=== PATIENT | female | born 1995 | race African-American/Black ===

== ENCOUNTER 2020-01-23 20:02 | Emergency (ER) | payer OTHER ==
[~2020-01-23] VITALS: Ht 144.8 cm; Wt 54.2 kg
[2020-01-23] MEDS ORDERED: ACETAMINOPHEN TAB 650MG DOSE (2X325MG) PO ONE (20:30)
[2020-01-23] MEDS ORDERED: IBUPROFEN 800 MG TAB PO ONE (20:30)
[2020-01-23] MEDS ORDERED: IBUP80TA PO (21:17)
[2020-01-23 21:22] VITALS: BP 115/60
== END 2020-01-23 21:24 | disposition home or self-care (01) ==
LOC: M ED 20:02
DX: R51 Headache (principal)

== ENCOUNTER 2020-04-08 16:14 | Emergency (ER) | payer OTHER ==
[~2020-04-08] VITALS: Ht 149.9 cm; Wt 53.6 kg
[~2020-04-08 16:14] MED LIST: IBUP80TA PO
[2020-04-08] MEDS ORDERED: LIDOCAINE 2% MDV 20ML VIAL SC ONE (17:45)
[2020-04-08 18:06] VITALS: BP 138/91
== END 2020-04-08 18:09 | disposition home or self-care (01) ==
LOC: M ED 16:14
DX: S61.211A Laceration without foreign body of left index finger without damage to nail, initial encounter (principal); W26.0XXA Contact with knife, initial encounter; Y92.89 Other specified places as the place of occurrence of the external cause; Y93.G1 Activity, food preparation and clean up; Y99.1 Military activity; F41.9 Anxiety disorder, unspecified

== ENCOUNTER → 2020-04-15 | Emergency (ER) | payer OTHER ==
[2020-04-15 17:20] VITALS: BP 107/54
== END | disposition left against medical advice (07) ==
LOC: M ED 17:19
DX: Z48.02 Encounter for removal of sutures (principal); Z53.21 Procedure and treatment not carried out due to patient leaving prior to being seen by health care provider

== ENCOUNTER 2020-07-09 16:40 | Emergency (ER) | payer OTHER ==
[~2020-07-09] VITALS: Ht 149.9 cm; Wt 55.7 kg
[2020-07-09 16:40] VITALS: BP 136/73
[2020-07-09] MEDS ORDERED: NAPR500T6 PO (17:01)
== END 2020-07-09 17:12 | disposition home or self-care (01) ==
LOC: M ED 16:40
DX: M65.4 Radial styloid tenosynovitis [de Quervain] (principal)

== ENCOUNTER 2020-10-21 17:51 | Emergency (ER) | payer OTHER ==
[~2020-10-21] VITALS: Ht 149.9 cm; Wt 55.8 kg
[~2020-10-21 17:51] MED LIST changes: +NAPR500T6 PO
--- OUTSIDE RECORDS SUMMARY | 2020-10-21 18:05 | CCD ---
Author Author [facility] Organization [facility] Address Unknown Phone Unavailable Support Name Relationship Address Phone DANIELITO RANDOLPH Next Of Kin [address] [place] [address] [facility] Next Of Kin [address] [place] [address] Unavailable CARRIE RANDOLPH Next Of Kin [address] [place] [place] [address] Re-disclosure Warning The records that you are about to access may contain information from federally-assisted alcohol or drug abuse programs. If such information is present, then the following federally mandated warning applies: This information has been disclosed to you from records protected by federal confidentiality rules (42 CFR part 2). The federal rules prohibit you from making any further disclosure of this information unless further disclosure is expressly permitted by the written consent of the person to whom it pertains or as otherwise permitted by 42 CFR part 2. A general authorization for the release of medical or other information is NOT sufficient for this purpose. The Federal rules restrict any use of the information to criminally investigate or prosecute any alcohol or drug abuse patient.The records that you are about to access may contain highly sensitive health information, the redisclosure of which is protected by Article 27-F of the [facility] Public Health law. If you continue you may have access to information: Regarding HIV / AIDS; Provided by facilities licensed or operated by the [facility] Office of Mental Health; or Provided by the [facility] Office for People With Developmental Disabilities. If such information is present, then the following [facility] mandated warning applies: This information has been disclosed to you from confidential records which are protected by state law. State law prohibits you from making any further disclosure of this information without the specific written consent of the person to whom it pertains, or as otherwise permitted by law. Any unauthorized further disclosure in violation of state law may result in a fine or prison sentence or both. A general authorization for the release of medical or other information is NOT sufficient authorization for further disc losure. Insurance Providers Payer name Policy type / Coverage type Policy ID Covered libertarian ID Covered libertarian's relationship to mejía Policy Mejía Plan Information [facility] ACTIVE DUTY [id number]
[2020-10-21] MEDS ORDERED: EPINEPHrine INJ 1 MG/ML 1ML AMP IM STA (18:13)
[2020-10-21] MEDS ORDERED: FAMOTIDINE INJ 20MG/2ML VIAL (S0028 PER 1) IVP ONE (18:15)
[2020-10-21] MEDS ORDERED: methylPREDNISolone 125MG 2ML VIAL IV ONE (18:15)
[2020-10-21] MEDS ORDERED: diphenhydrAMINE 50MG/ML VIAL (J1200) IV ONE (18:15)
[2020-10-21 18:34] LABS: BASO % 0.1 % (0.0-1.0); EOS % 0.2 % (0.0-3.0); HEMATOCRIT 42.5 % (36.0-47.0); HEMOGLOBIN 13.8 g/dl (12.0-15.5); LYMPH % 10.2 % (24.0-44.0); MEAN CORPUSCULAR HEMOGLOBIN 30.5 pg (27.0-33.0); MEAN CORPUSCULAR HGB CONC 32.5 g/dl (32.0-36.5); MONO # 0.1 10^3/uL (0.0-0.8); MONO % 1.2 % (0.0-5.0); NEUTROPHILS # 8.5 10^3/uL (1.5-8.5); NEUTROPHILS % 87.9 % (36.0-66.0); PLATELET COUNT, AUTOMATED 292 10^3/uL (150-450); RED BLOOD COUNT 4.52 10^6/uL (4.00-5.40); WHITE BLOOD COUNT 9.6 10^3/uL (4.0-10.0)
[2020-10-21 19:04] LABS: ALBUMIN 4.1 GM/DL (3.2-5.2); ALT/SGPT 24 U/L (12-78); BILIRUBIN,DIRECT 0.1 MG/DL (0.0-0.2); BILIRUBIN,TOTAL 0.6 MG/DL (0.2-1.0); BLOOD UREA NITROGEN 14 MG/DL (7-18); CALCIUM LEVEL 9.3 MG/DL (8.5-10.1); CARBON DIOXIDE LEVEL 31 MEQ/L (21-32); CHLORIDE LEVEL 105 MEQ/L (98-107); COMPLEMENT C4 23 MG/DL (10-40); CREATININE FOR GFR 0.81 MG/DL (0.55-1.30); GLOMERULAR FILTRATION RATE > 60.0 (>60); GLUCOSE, FASTING 93 MG/DL (70-100); POTASSIUM SERUM 3.6 MEQ/L (3.5-5.1); SODIUM LEVEL 140 MEQ/L (136-145); TOTAL PROTEIN 7.6 GM/DL (6.4-8.2)
[2020-10-21 19:07] LABS: CK-MB VALUE MASS < 1.0 NG/ML (<3.6); CPK CREATINE PHOSPHOKINASE 132 U/L (26-192); MB/CK RELATIVE INDEX 0.76 (< OR =4); TROPONIN I < 0.02 NG/ML (< 0.10)
[2020-10-21 19:15] VITALS: BP 112/57
--- NOTE | 2020-10-21 19:25 | REP ---
INDICATION: DYSPNEA/COUGH. COMPARISON: None. TECHNIQUE: SINGLE PORTABLE AP VIEW OF THE CHEST WAS PERFORMED. FINDINGS: THERE IS NO ACUTE INFILTRATE OR PULMONARY EDEMA. LUNGS ARE CLEAR. HEART IS NOT SIGNIFICANTLY ENLARGED. MEDIASTINAL SILHOUETTE IS UNREMARKABLE. THE VISUALIZED OSSEOUS STRUCTURES ARE INTACT. IMPRESSION: NO ACUTE PULMONARY DISEASE. <Electronically signed by Mario Molina > 10/21/201920
--- OUTSIDE RECORDS SUMMARY | 2020-10-21 20:02 | CCD ---
Author Author [facility] Organization [facility] Address Unknown Phone Unavailable Support Name Relationship Address Phone DANIELITO RANDOLPH Next Of Kin [address] [place] [address] [facility] Next Of Kin [address] [place] [address] Unavailable CARRIE RANDOLPH Next Of Kin [address] [place] [address] Re-disclosure Warning The records that [...] is protected by Article 27-F of the [facility] Public Health law. If you continue you may have access to information: Regarding HIV / AIDS; Provided by facilities licensed or operated by the [facility] Office of Mental Health; or Provided by the [facility] Office for People With Developmental Disabilities. If such information is present, then the following [facility] mandated warning applies: This information has [...] law may result in a fine or senior care sentence or both. A general authorization for the release of medical or other information is NOT sufficient authorization for further disc losure. Insurance Providers Payer name Policy type / Coverage type Policy ID Covered alliance party ID Covered alliance party's relationship to mejía Policy Mejía Plan Information [facility] ACTIVE DUTY [id number]
--- NOTE | 2020-10-21 20:55 | ECGEPIP ---
[facility] - ED Test Date: 2020-10-21 Pat Name: TERRY YU Department: Room: - Gender: Female Audit Clerk: franky : 1995 Requested By: TORRES Sarmiento Order Number: [id number] Reading MD: Chaitanya Wlilis Measurements Intervals [place] Rate: 99 P: 63 IN: 172 QRS: 39 QRSD: 80 T: 0 QT: 342 QTc: 440 Interpretive Statements SINUS RHYTHM NONSPECIFIC T-WAVE ABNORMALITY NO PRIORS FOR COMPARISON Electronically Signed on 10-21-2020 20:55:01 EST by Chaitanya Willis
[2020-10-22] MEDS ORDERED: BENA25CA4 PO (20:45)
[2020-10-26 15:14] LABS: C1 ESTER INHIB. NON FUNCTIONAL 26 mg/dL (21-39); C1 ESTERASE INHIB. FUNCTIONAL 79 (.)
== END 2020-10-21 22:20 | disposition home or self-care (01) ==
LOC: M ED 17:51
DX: R22.0 Localized swelling, mass and lump, head (principal); E73.9 Lactose intolerance, unspecified
CPT/HCPCS: 71045; 80048; 80076; 82550; 82553; 84484; 85025; 86160; 86161; 93005; 93041; 94760; 96372; 96374; 96375; 99285; J0171; J1200; J2930

== ENCOUNTER 2020-10-22 19:38 | Emergency (ER) | payer OTHER ==
[~2020-10-22] VITALS: Ht 149.9 cm; Wt 55.8 kg
[2020-10-22 19:39] VITALS: BP 113/60
--- OUTSIDE RECORDS SUMMARY | 2020-10-22 19:43 | CCD ---
Author Author [facility] Organization [facility] Address Unknown Phone Unavailable Support Name Relationship Address Phone DANIELITO RANDOLPH Next Of Kin [address] [place] [address] [facility] Next Of Kin [address] [place] [address] Unavailable CARRIE RANDOLPH Next Of Kin [address] [place] [address] Re-disclosure Warning The records that [...] is protected by Article 27-F of the [facility] Public Health law. If you continue you may have access to information: Regarding HIV / AIDS; Provided by facilities licensed or operated by the [facility] Office of Mental Health; or Provided by the [facility] Office for People With Developmental Disabilities. If such information is present, then the following [facility] mandated warning applies: This information has been [...] law may result in a fine or long-term sentence or both. A general authorization for the release of medical or other information is NOT sufficient authorization for further disc losure. Insurance Providers Payer name Policy type / Coverage type Policy ID Covered constitution party ID Covered constitution party's relationship to mejía Policy Mejía Plan Information [facility] ACTIVE DUTY [id number]
[2020-10-22] MEDS ORDERED: BENA25CA4 PO (20:45)
--- OUTSIDE RECORDS SUMMARY | 2020-10-22 20:56 | CCD ---
Author Author [facility] Organization [facility] Address Unknown Phone Unavailable Support Name Relationship Address Phone DANIELITO RANDOLPH Next Of Kin [address] [place] [address] [facility] Next Of Kin [address] [place] [address] Unavailable CARRIE RANDOLPH Next Of Kin [address] [place] [address] Re-disclosure Warning The records that [...] by Article 27-F of the [facility] Public Health law. If you continue you may have access to information: Regarding HIV / AIDS; Provided by facilities licensed or operated by the [facility] Office of Mental Health; or Provided by the [facility] Office for People With Developmental Disabilities. If such information is present, then the following [facility] mandated warning applies: This information [...] law may result in a fine or assisted sentence or both. A general authorization for the release of medical or other information is NOT sufficient authorization for further disc losure. Insurance Providers Payer name Policy type / Coverage type Policy ID Covered democrat ID Covered democrat's relationship to mejía Policy Mejía Plan Information [facility] ACTIVE DUTY [id number]
== END 2020-10-22 21:00 | disposition home or self-care (01) ==
LOC: M ED 19:38
DX: Z76.0 Encounter for issue of repeat prescription (principal); R51.9 Headache, unspecified; E73.9 Lactose intolerance, unspecified

== ENCOUNTER 2020-12-17 12:41 | Emergency (ER) | payer OTHER ==
[~2020-12-17] VITALS: Ht 149.9 cm; Wt 55.6 kg
[~2020-12-17 12:41] MED LIST changes: +BENA25CA4 PO
[2020-12-17 13:37] LABS: HEMATOCRIT 42.6 % (36.0-47.0); HEMOGLOBIN 13.6 g/dl (12.0-15.5); MEAN CORPUSCULAR HEMOGLOBIN 30.4 pg (27.0-33.0); MEAN CORPUSCULAR HGB CONC 31.9 g/dl (32.0-36.5); MEAN CORPUSCULAR VOLUME 95.1 fl (80.0-96.0); PLATELET COUNT, AUTOMATED 266 10^3/uL (150-450); RED BLOOD COUNT 4.48 10^6/uL (4.00-5.40); WHITE BLOOD COUNT 6.8 10^3/uL (4.0-10.0)
[2020-12-17] MEDS ORDERED: KETOROLAC TROMETHAMINE 10 MG TAB PO ONE (14:25)
[2020-12-17] MEDS ORDERED: ROBA750T4 PO (14:39)
[2020-12-17 14:44] VITALS: BP 104/69
== END 2020-12-17 14:45 | disposition home or self-care (01) ==
LOC: M ED 12:41
DX: N39.3 Stress incontinence (female) (male) (principal); G89.29 Other chronic pain; M54.6 Pain in thoracic spine; M54.5 Low back pain; E73.9 Lactose intolerance, unspecified

== ENCOUNTER 2021-04-28 08:37 | Emergency (ER) | payer OTHER ==
[~2021-04-28] VITALS: Ht 149.9 cm; Wt 55.7 kg
[~2021-04-28 08:37] MED LIST changes: +ROBA750T4 PO
[2021-04-28] MEDS ORDERED: EPIN0.3I11 (08:45)
[2021-04-28 10:58] LABS: HEMATOCRIT 40.2 % (36.0-47.0); HEMOGLOBIN 13.1 g/dl (12.0-15.5); MEAN CORPUSCULAR HEMOGLOBIN 30.8 pg (27.0-33.0); MEAN CORPUSCULAR HGB CONC 32.6 g/dl (32.0-36.5); MEAN CORPUSCULAR VOLUME 94.4 fl (80.0-96.0); PLATELET COUNT, AUTOMATED 282 10^3/uL (150-450); RED BLOOD COUNT 4.26 10^6/uL (4.00-5.40); WHITE BLOOD COUNT 5.7 10^3/uL (4.0-10.0)
[2021-04-28 11:20] LABS: AMPHETAMINES LEVEL URINE NEGATIVE (NEGATIVE); BARBITURATES URINE NEGATIVE (NEGATIVE); BENZODIAZEPINES URINE NEGATIVE (NEGATIVE); CANNABINOIDS URINE NEGATIVE (NEGATIVE); COCAINE METABOLITE URINE NEGATIVE (NEGATIVE); METHADONE URINE NEGATIVE (NEGATIVE); OPIATES URINE NEGATIVE (NEGATIVE); PHENCYCLIDINE URINE NEGATIVE (NEGATIVE)
[2021-04-28 11:27] LABS: ACETAMINOPHEN LEVEL < 2.0 UG/ML (10.0-30.0); ALBUMIN 3.8 GM/DL (3.2-5.2); ALT/SGPT 19 U/L (12-78); BILIRUBIN,DIRECT 0.2 MG/DL (0.0-0.2); BILIRUBIN,TOTAL 0.5 MG/DL (0.2-1.0); BLOOD UREA NITROGEN 9 MG/DL (7-18); CALCIUM LEVEL 8.8 MG/DL (8.5-10.1); CARBON DIOXIDE LEVEL 29 MEQ/L (21-32); CHLORIDE LEVEL 109 MEQ/L (98-107); CREATININE FOR GFR 0.65 MG/DL (0.55-1.30); ETHYL ALCOHOL (ETHANOL) < 0.003 % (0.000-0.010); GLOMERULAR FILTRATION RATE > 60.0 (>60); GLUCOSE, FASTING 79 MG/DL (70-100); POTASSIUM SERUM 4.1 MEQ/L (3.5-5.1); SALICYLATE LEVEL < 1.7 MG/DL (5.0-30.0); SODIUM LEVEL 142 MEQ/L (136-145); TOTAL PROTEIN 7.3 GM/DL (6.4-8.2)
[2021-04-28 11:30] LABS: HCG, SERUM QUALITATIVE NEGATIVE (NEGATIVE)
[2021-04-28 12:49] VITALS: BP 115/74
== END 2021-04-28 13:48 | disposition home or self-care (01) ==
LOC: M ED 08:37
DX: F32.9 Major depressive disorder, single episode, unspecified (principal); E73.9 Lactose intolerance, unspecified

== ENCOUNTER 2021-05-23 09:44 | Emergency (ER) | payer OTHER ==
[~2021-05-23] VITALS: Ht 144.8 cm; Wt 55.0 kg
[~2021-05-23 09:44] MED LIST changes: +EPIN0.3I11
[2021-05-23] MEDS ORDERED: B-12100T2 PO (09:49)
--- NOTE | 2021-05-23 10:38 | REP ---
INDICATION: trauma COMPARISON: None. TECHNIQUE: AP, lateral, bilateral oblique views right hand. FINDINGS: The osseous structures and joint spaces are intact and normal. There is no evidence for acute fracture or dislocation. Surrounding soft tissues are unremarkable. No subcutaneous emphysema or radiodense foreign body. IMPRESSION: . No acute fracture or dislocation. <Electronically signed by Jose Raul Jenkins > 05/23/21 0867
[2021-05-23 11:33] VITALS: BP 134/82
== END 2021-05-23 11:35 | disposition home or self-care (01) ==
LOC: M ED 09:44
DX: S60.221A Contusion of right hand, initial encounter (principal); W23.1XXA Caught, crushed, jammed, or pinched between stationary objects, initial encounter; Y92.9 Unspecified place or not applicable; Y93.9 Activity, unspecified; Y99.9 Unspecified external cause status; F32.9 Major depressive disorder, single episode, unspecified; Z79.899 Other long term (current) drug therapy

== ENCOUNTER 2021-07-13 18:15 | Emergency (ER) | payer OTHER ==
[~2021-07-13] VITALS: Ht 149.9 cm; Wt 56.4 kg
[~2021-07-13 18:15] MED LIST changes: +B-12100T2 PO
[2021-07-13] MEDS ORDERED: GABA-1171 (18:44)
[2021-07-13 20:50] LABS: HEMATOCRIT 38.3 % (36.0-47.0); HEMOGLOBIN 12.5 g/dl (12.0-15.5); MEAN CORPUSCULAR HEMOGLOBIN 30.3 pg (27.0-33.0); MEAN CORPUSCULAR HGB CONC 32.6 g/dl (32.0-36.5); PLATELET COUNT, AUTOMATED 270 10^3/uL (150-450); RED BLOOD COUNT 4.12 10^6/uL (4.00-5.40); WHITE BLOOD COUNT 7.9 10^3/uL (4.0-10.0)
[2021-07-13 21:14] LABS: AMPHETAMINES LEVEL URINE NEGATIVE (NEGATIVE); BARBITURATES URINE NEGATIVE (NEGATIVE); BENZODIAZEPINES URINE NEGATIVE (NEGATIVE); CANNABINOIDS URINE NEGATIVE (NEGATIVE); COCAINE METABOLITE URINE NEGATIVE (NEGATIVE); METHADONE URINE NEGATIVE (NEGATIVE); OPIATES URINE NEGATIVE (NEGATIVE); PHENCYCLIDINE URINE NEGATIVE (NEGATIVE)
[2021-07-13 21:29] LABS: HCG, SERUM QUALITATIVE NEGATIVE (NEGATIVE)
[2021-07-13 21:32] LABS: ACETAMINOPHEN LEVEL < 2.0 UG/ML (10.0-30.0); ALBUMIN 3.8 GM/DL (3.2-5.2); ALT/SGPT 22 U/L (12-78); BILIRUBIN,DIRECT 0.2 MG/DL (0.0-0.2); BILIRUBIN,TOTAL 0.8 MG/DL (0.2-1.0); BLOOD UREA NITROGEN 10 MG/DL (7-18); CALCIUM LEVEL 8.6 MG/DL (8.5-10.1); CARBON DIOXIDE LEVEL 31 MEQ/L (21-32); CHLORIDE LEVEL 104 MEQ/L (98-107); CREATININE FOR GFR 0.86 MG/DL (0.55-1.30); ETHYL ALCOHOL (ETHANOL) < 0.003 % (0.000-0.010); GLOMERULAR FILTRATION RATE > 60.0 (>60); GLUCOSE, FASTING 78 MG/DL (70-100); SALICYLATE LEVEL < 1.7 MG/DL (5.0-30.0); SODIUM LEVEL 139 MEQ/L (136-145); TOTAL PROTEIN 7.5 GM/DL (6.4-8.2)
[2021-07-13 23:18] VITALS: BP 115/78
== END 2021-07-13 23:22 | disposition home or self-care (01) ==
LOC: M ED 18:15
DX: F32.9 Major depressive disorder, single episode, unspecified (principal); Z91.51 Personal history of suicidal behavior; E73.9 Lactose intolerance, unspecified; Z79.899 Other long term (current) drug therapy

== ENCOUNTER 2022-10-31 18:35 | Emergency (ER) | payer OTHER ==
[~2022-10-31] VITALS: Ht 149.9 cm; Wt 59.0 kg
[~2022-10-31 18:35] MED LIST changes: +GABA-1171
[2022-10-31] MEDS ORDERED: LOPE1CAP5 (18:46)
[2022-10-31] MEDS ORDERED: DIPH-319 (18:46)
[2022-10-31 20:02] LABS: HEMOGLOBIN 13.2 g/dl (12.0-15.5); MEAN CORPUSCULAR HEMOGLOBIN 30.2 pg (27.0-33.0); MEAN CORPUSCULAR VOLUME 91.5 fl (80.0-96.0); PLATELET COUNT, AUTOMATED 298 10^3/uL (150-450); RED BLOOD COUNT 4.37 10^6/uL (4.00-5.40); WHITE BLOOD COUNT 10.1 10^3/uL (4.0-10.0)
[2022-10-31 20:30] LABS: ETHYL ALCOHOL (ETHANOL) 0.003 % (0.000-0.010)
[2022-10-31 20:31] LABS: ACETAMINOPHEN LEVEL < 2.0 UG/ML (10.0-20.0); SALICYLATE LEVEL < 3.0 MG/DL (<30)
[2022-10-31 20:32] LABS: ALBUMIN 3.9 G/DL (3.2-5.2); ALKALINE PHOSPHATASE 63 U/L (46-116); ALT/SGPT 14 U/L (7.0-40); AST/SGOT 21 U/L (<34); BILIRUBIN,DIRECT < 0.1 MG/DL (<0.4); BILIRUBIN,TOTAL 0.3 MG/DL (0.3-1.2); BLOOD UREA NITROGEN 15 MG/DL (9-23); CARBON DIOXIDE LEVEL 26 MMOL/L (20-31); CHLORIDE LEVEL 103 MMOL/L (98-107); CREATININE FOR GFR 0.62 MG/DL (0.55-1.30); GLOMERULAR FILTRATION RATE > 60.0 (>60); GLUCOSE, FASTING 85 MG/DL (60-100); POTASSIUM SERUM 3.8 MMOL/L (3.5-5.1); SODIUM LEVEL 137 MMOL/L (136-145); TOTAL PROTEIN 7.4 G/DL (5.7-8.2)
[2022-10-31 20:33] LABS: THYROID STIMULATING HORMONE 2.133 uIU/ML (0.55-4.78)
[2022-10-31 20:54] LABS: HCG, SERUM QUALITATIVE NEGATIVE (NEGATIVE)
[2022-10-31 22:42] LABS: AMPHETAMINES LEVEL URINE NEGATIVE (NEGATIVE); BARBITURATES URINE NEGATIVE (NEGATIVE); BENZODIAZEPINES URINE NEGATIVE (NEGATIVE)
[2022-10-31 22:43] LABS: CANNABINOIDS URINE NEGATIVE (NEGATIVE); COCAINE METABOLITE URINE NEGATIVE (NEGATIVE); METHADONE URINE NEGATIVE (NEGATIVE); OPIATES URINE NEGATIVE (NEGATIVE); PHENCYCLIDINE URINE NEGATIVE (NEGATIVE)
[2022-11-01 00:19] LABS: RSV AMPLIFICATION NEGATIVE (NEGATIVE)
[2022-11-01] MEDS ORDERED: VITMTA PO (01:47)
[2022-11-01] MEDS ORDERED: [UNRECOGNIZED DRUG - OTHER] (01:48)
[2022-11-01] MEDS ORDERED: HOME MED LIST COMPLETE! XX SCH (01:50)
[2022-11-02 02:11] VITALS: BP 104/50
== END 2022-11-02 02:16 ==
LOC: M ED 18:35
DX: R45.851 Suicidal ideations (principal); F32.A Depression, unspecified; F10.10 Alcohol abuse, uncomplicated; Z91.011 Allergy to milk products; Z79.810 Long term (current) use of selective estrogen receptor modulators (SERMs)

== ENCOUNTER 2023-02-09 07:13 | Emergency (ER) | payer OTHER ==
[~2023-02-09] VITALS: Ht 149.9 cm; Wt 60.7 kg
[~2023-02-09 07:13] MED LIST changes: +DIPH-319; +LOPE1CAP5; +VITMTA PO; +[UNRECOGNIZED DRUG - OTHER]
[2023-02-09 07:14] VITALS: BP 105/62
== END 2023-02-09 12:49 | disposition left against medical advice (07) ==
LOC: M ED 07:13
DX: Z53.21 Procedure and treatment not carried out due to patient leaving prior to being seen by health care provider (principal)

== ENCOUNTER 2023-03-09 16:29 | Inpatient (IN) | payer OTHER ==
[~2023-03-09] VITALS: Ht 149.9 cm; Wt 58.7 kg
[2023-03-09] MEDS ORDERED: UNIS25TA3 PO (16:40)
[2023-03-09] MEDS ORDERED: PYRI25TA2 PO (16:40)
[2023-03-09] MEDS ORDERED: MULTTAB20 PO (16:40)
[2023-03-09] MEDS ORDERED: BUSP15TA47 PO (16:44)
[2023-03-09 17:39] LABS: HEMATOCRIT 39.4 % (36.0-47.0); MEAN CORPUSCULAR HEMOGLOBIN 30.2 pg (27.0-33.0); MEAN CORPUSCULAR VOLUME 91.6 fl (80.0-96.0); PLATELET COUNT, AUTOMATED 330 10^3/uL (150-450); WHITE BLOOD COUNT 10.3 10^3/uL (4.0-10.0)
[2023-03-09 18:08] LABS: AMPHETAMINES LEVEL URINE NEGATIVE (NEGATIVE); BARBITURATES URINE NEGATIVE (NEGATIVE); BENZODIAZEPINES URINE NEGATIVE (NEGATIVE); CANNABINOIDS URINE NEGATIVE (NEGATIVE); COCAINE METABOLITE URINE NEGATIVE (NEGATIVE); HCG, SERUM QUALITATIVE POSITIVE (NEGATIVE); METHADONE URINE NEGATIVE (NEGATIVE); OPIATES URINE NEGATIVE (NEGATIVE); PHENCYCLIDINE URINE NEGATIVE (NEGATIVE)
[2023-03-09 18:11] LABS: ETHYL ALCOHOL (ETHANOL) 0.004 % (0.000-0.010)
[2023-03-09 18:12] LABS: ACETAMINOPHEN LEVEL < 2.0 UG/ML (10.0-20.0); ALBUMIN 3.9 G/DL (3.2-5.2); ALKALINE PHOSPHATASE 62 U/L (46-116); ALT/SGPT 16 U/L (7.0-40); AST/SGOT 11 U/L (<34); BILIRUBIN,DIRECT 0.1 MG/DL (<0.4); BILIRUBIN,TOTAL 0.3 MG/DL (0.3-1.2); BLOOD UREA NITROGEN 11 MG/DL (9-23); CALCIUM LEVEL 9.4 MG/DL (8.5-10.1); CARBON DIOXIDE LEVEL 26 MMOL/L (20-31); CHLORIDE LEVEL 102 MMOL/L (98-107); CREATININE FOR GFR 0.52 MG/DL (0.55-1.30); GLOMERULAR FILTRATION RATE > 60.0 (>60); GLUCOSE, FASTING 75 MG/DL (60-100); SALICYLATE LEVEL < 3.0 MG/DL (<30); SODIUM LEVEL 136 MMOL/L (136-145); TOTAL PROTEIN 7.7 G/DL (5.7-8.2)
[2023-03-09 18:14] LABS: THYROID STIMULATING HORMONE 0.021 uIU/ML (0.55-4.78)
[2023-03-09] MEDS ORDERED: PYRI50TA41 PO (18:25)
[2023-03-09] MEDS ORDERED: BUSP10TA PO (18:25)
[2023-03-09] MEDS ORDERED: HOME MED LIST COMPLETE! XX SCH (18:25)
[2023-03-09] MEDS ORDERED: IBUPROFEN 400MG TAB PO PRN (22:10)
[2023-03-09] MEDS ORDERED: MOM 30ML SUSPENSION UDC PO PRN (22:10)
[2023-03-09] MEDS ORDERED: traZODone 50 MG TAB PO PRN (22:10)
[2023-03-09] MEDS ORDERED: MAALOX 30 ML SUSP *UDC PO PRN (22:10)
[2023-03-09] MEDS ORDERED: diphenhydrAMINE 25MG CAP PO PRN (22:10)
[2023-03-09 22:47] VITALS: BP 113/62; TEMP 98.2; O2SAT 100
[2023-03-10 06:04] VITALS: BP 94/52; TEMP 98; O2SAT 98
[2023-03-10] MEDS: FLUoxetine 10 MG CAP PO SCH (09:00)
[2023-03-10] MEDS: PRENATAL VITAMINS CHEWABLE TABLET PO SCH (09:07)
[2023-03-10] MEDS: PYRIDOXINE 50 MG TAB PO SCH ×3 (09:08→21:00)
[2023-03-10] MEDS: busPIRone 10 MG TAB PO SCH ×3 (09:08→21:00)
[2023-03-10] MEDS: MULTIVITAMINS/MINERALS THERAP 1 TAB PO SCH (09:08)
[2023-03-10 11:00] LABS: FREE T4 1.38 NG/DL (0.89-1.76); FREE THYROXINE INDEX 3.8 % (1.3-4.8); T UPTAKE 22.2 % (22.5-37.0); THYROXINE (T4) 17.2 UG/DL (4.5-10.9)
[2023-03-10 16:57] VITALS: BP 105/67; TEMP 98; O2SAT 99
[2023-03-10] MEDS ORDERED: PROMETHAZINE 25 MG TAB PO PRN (17:20)
[2023-03-11 06:32] VITALS: BP 95/60; TEMP 96.7; O2SAT 97
[2023-03-11] MEDS: PYRIDOXINE 50 MG TAB PO SCH ×3 (08:05→20:51)
[2023-03-11] MEDS: busPIRone 10 MG TAB PO SCH ×3 (08:05→20:51)
[2023-03-11] MEDS: FLUoxetine 10 MG CAP PO SCH (08:05)
[2023-03-11] MEDS: MULTIVITAMINS/MINERALS THERAP 1 TAB PO SCH (08:06)
[2023-03-11] MEDS: PRENATAL VITAMINS CHEWABLE TABLET PO SCH (09:14)
[2023-03-11 16:16] VITALS: BP 109/57; TEMP 96.8; O2SAT 98
[2023-03-12 06:47] VITALS: BP 90/51; TEMP 97.1; O2SAT 100
[2023-03-12] MEDS: MULTIVITAMINS/MINERALS THERAP 1 TAB PO SCH (08:08)
[2023-03-12] MEDS: PYRIDOXINE 50 MG TAB PO SCH ×3 (08:09→19:58)
[2023-03-12] MEDS: FLUoxetine 10 MG CAP PO SCH (08:09)
[2023-03-12] MEDS: busPIRone 10 MG TAB PO SCH ×3 (08:09→19:58)
[2023-03-12] MEDS: PRENATAL VITAMINS CHEWABLE TABLET PO SCH (08:09)
[2023-03-12 16:15] VITALS: BP 104/58; TEMP 97.5; O2SAT 100
[2023-03-12] MEDS: ACETAMINOPHEN TAB 650MG DOSE (2X325MG) PO PRN (19:59)
[2023-03-13 06:26] VITALS: BP 145/79; TEMP 97.2; O2SAT 99
[2023-03-13] MEDS: busPIRone 10 MG TAB PO SCH ×3 (08:39→20:43)
[2023-03-13] MEDS: FLUoxetine 10 MG CAP PO SCH (08:39)
[2023-03-13] MEDS: PRENATAL VITAMINS CHEWABLE TABLET PO SCH (08:40)
[2023-03-13] MEDS: PYRIDOXINE 50 MG TAB PO SCH ×3 (08:40→20:42)
[2023-03-13] MEDS: MULTIVITAMINS/MINERALS THERAP 1 TAB PO SCH (08:44)
[2023-03-13 18:00] VITALS: BP 126/76; TEMP 97; O2SAT 98
[2023-03-13] MEDS: ACETAMINOPHEN TAB 650MG DOSE (2X325MG) PO PRN (20:44)
[2023-03-14 05:59] VITALS: BP 97/55; TEMP 97.8; O2SAT 98
[2023-03-14] MEDS: PYRIDOXINE 50 MG TAB PO SCH ×3 (08:25→20:09)
[2023-03-14] MEDS: FLUoxetine 10 MG CAP PO SCH (08:25)
[2023-03-14] MEDS: PRENATAL VITAMINS CHEWABLE TABLET PO SCH (08:25)
[2023-03-14] MEDS: busPIRone 10 MG TAB PO SCH ×3 (08:25→20:09)
[2023-03-14] MEDS: MULTIVITAMINS/MINERALS THERAP 1 TAB PO SCH (08:26)
[2023-03-14 17:48] VITALS: BP 132/76; TEMP 96.5
[2023-03-14] MEDS ORDERED: diphenhydrAMINE 50MG CAP PO SCH (21:00)
[2023-03-15 06:07] VITALS: BP 97/54; TEMP 98.4; O2SAT 100
[2023-03-15] MEDS: busPIRone 10 MG TAB PO SCH (08:50)
[2023-03-15] MEDS: PYRIDOXINE 50 MG TAB PO SCH (08:51)
[2023-03-15] MEDS: PRENATAL VITAMINS CHEWABLE TABLET PO SCH (08:51)
[2023-03-15] MEDS: MULTIVITAMINS/MINERALS THERAP 1 TAB PO SCH (08:58)
[2023-03-15] MEDS ORDERED: FLUoxetine 20MG CAP PO SCH (09:00)
[2023-03-15] MEDS ORDERED: FLUO20CA22 PO (10:00)
[2023-03-15] MEDS ORDERED: BUSP10TA PO (10:00)
[2023-03-15] MEDS ORDERED: PROM25TA12 PO (10:00)
[2023-03-15] MEDS ORDERED: DIPH50CA PO (10:00)
== END 2023-03-15 13:00 | disposition home or self-care (01) | DRG 832 ==
LOC: EDBD 16:29 → M ED 16:29 → M ED INP 22:06 → M PSY 22:35
PROVIDERS: ADMIT Psychiatry & Neurology Psychiatry; ATTEND Student in an Organized Health Care Education/Training Program
DX: O99.341 Other mental disorders complicating pregnancy, first trimester (principal); R45.851 Suicidal ideations; Z3A.10 10 weeks gestation of pregnancy; R11.0 Nausea; O26.891 Other specified pregnancy related conditions, first trimester; Z79.899 Other long term (current) drug therapy; Z20.822 Contact with and (suspected) exposure to COVID-19; F32.9 Major depressive disorder, single episode, unspecified; Z91.51 Personal history of suicidal behavior

== ENCOUNTER 2023-03-23 15:26 | Emergency (ER) | payer OTHER ==
[~2023-03-23] VITALS: Ht 149.9 cm; Wt 63.2 kg
[~2023-03-23 15:26] MED LIST changes: +BUSP10TA PO; +BUSP15TA47 PO; +DIPH50CA PO; +FLUO20CA22 PO; +MULTTAB20 PO; +PROM25TA12 PO; +PYRI25TA2 PO; +PYRI50TA41 PO; +UNIS25TA3 PO
[2023-03-23 15:27] VITALS: BP 123/84; TEMP 98; O2SAT 100
== END 2023-03-23 17:30 | disposition home or self-care (01) ==
LOC: M ED 15:26
DX: F32.A Depression, unspecified (principal); E73.9 Lactose intolerance, unspecified; Z79.899 Other long term (current) drug therapy

== ENCOUNTER 2023-09-01 09:38 | Outpatient (CLI) | payer OTHER ==
[~2023-09-01] VITALS: Ht 149.9 cm; Wt 74.7 kg
[~2023-09-01 09:38] MED LIST changes: -DIPH-319; +DIPH-429
[2023-09-01] MEDS ORDERED: LR 1,000 ML IV ONE (09:55)
== END 2023-09-01 13:50 | disposition home or self-care (01) ==
LOC: M LDO 09:38
PROVIDERS: ATTEND Obstetrics & Gynecology
DX: O24.414 Gestational diabetes mellitus in pregnancy, insulin controlled (principal); O99.343 Other mental disorders complicating pregnancy, third trimester; F32.A Depression, unspecified; F41.9 Anxiety disorder, unspecified; Z3A.35 35 weeks gestation of pregnancy; Z91.011 Allergy to milk products; Z79.899 Other long term (current) drug therapy
CPT/HCPCS: 59025; 76815; 76819; 76820; G0463

== ENCOUNTER 2023-09-18 08:53 | Inpatient (IN) | payer OTHER ==
[~2023-09-18] VITALS: Ht 149.9 cm; Wt 74.2 kg
[2023-09-18 09:13] VITALS: BP 125/79
[2023-09-18] MEDS ORDERED: HOME MED LIST COMPLETE! XX SCH (09:20)
[2023-09-18] MEDS ORDERED: LACTATED RINGER'S 1000 ML IV STA (10:14)
[2023-09-18] MEDS ORDERED: PENICILLIN G POTASSIUM 5 MU IV 5 MU in D5W MINI-BAG PLUS 100 ML IV STA ×2 (10:14→10:45)
[2023-09-18] MEDS ORDERED: CARBOPROST TROMETHAMINE 250 MCG/ML AMP IM PRN (10:15)
[2023-09-18] MEDS ORDERED: OXYTOCIN INJ 10UNITS/ML 1ML VIAL IV PRN (10:15)
[2023-09-18] MEDS ORDERED: TRANEXAMIC ACID INJection 1,000 MG in NS 100 ML IV PRN (10:15)
[2023-09-18] MEDS ORDERED: OXYTOCIN DRIP 30 UNITS in IV 1 EA IV SCH (10:15)
[2023-09-18] MEDS ORDERED: LIDOCAINE 1% MDV 20ML VIAL INFIL PRN (10:15)
[2023-09-18] MEDS ORDERED: OXYTOCIN INJ 10UNITS/ML 1ML VIAL IM PRN (10:15)
[2023-09-18] MEDS ORDERED: LR 1,000 ML IV SCH ×2 (10:15)
[2023-09-18] MEDS ORDERED: METHYLERGONOVINE MALEATE 0.2MG/ML 1ML VIAL IM PRN (10:15)
[2023-09-18] MEDS ORDERED: OXYTOCIN DRIP 30 UNITS in IV 1 EA IV PRN ×6 (10:15)
[2023-09-18 10:56] LABS: HEMATOCRIT 36.9 % (36.0-47.0); HEMOGLOBIN 11.8 g/dl (12.0-15.5); MEAN CORPUSCULAR HEMOGLOBIN 27.8 pg (27.0-33.0); PLATELET COUNT, AUTOMATED 278 10^3/uL (150-450); RED BLOOD COUNT 4.24 10^6/uL (4.00-5.40); WHITE BLOOD COUNT 11.4 10^3/uL (4.0-10.0)
[2023-09-18] MEDS: miSOPROStol 50MCG 1/2 TABLET PO PRN ×3 (11:17→20:59)
[2023-09-18] MEDS ORDERED: HUMU1INJ2 SC (12:43)
[2023-09-18] MEDS ORDERED: INSULIN IV RATE CHANGE DOCUMENTATION ML/HR XX SCH (13:05)
[2023-09-18] MEDS ORDERED: INSULIN REGULAR IN 0.9 % NACL 100 UNIT in IV 1 EA IV SCH ×2 (13:05)
[2023-09-18] MEDS ORDERED: PEN G POT 3,000,000 UNIT/50 ML 3,000,000 UNIT in IV 1 EA IV SCH (14:15)
[2023-09-18] MEDS: NS 1,000 ML IV SCH ×2 (14:58→23:46)
[2023-09-18] MEDS: PEN G POT 3,000,000 UNIT/50 ML 3,000,000 UNIT in IV 1 EA IV SCH ×3 (14:58→22:49)
[2023-09-18 20:46] VITALS: BP 113/77
[2023-09-18] MEDS ORDERED: **PENDING PCN ENTRY XX SCH (21:00)
[2023-09-18 22:45] VITALS: BP 119/72
[2023-09-19] VITALS (47 sets, daily range): BP systolic 91–133; BP diastolic 54–82; O2SAT 97–98
[2023-09-19] MEDS ORDERED: NALOXONE INJ 0.4MG/1ML VIAL IV PRN (00:05)
[2023-09-19] MEDS ORDERED: FENTANYL/ROPIVACAINE/NACL BAG 100 ML EPIDURAL SCH (00:05)
[2023-09-19] MEDS ORDERED: diphenhydrAMINE 50MG/ML VIAL IV PRN (00:05)
[2023-09-19] MEDS ORDERED: ONDANSETRON 4MG 2ML VIAL IV PRN ×2 (00:05→10:55)
[2023-09-19] MEDS ORDERED: LR 500 ML IV PRN (00:05)
[2023-09-19] MEDS ORDERED: EPIDURAL/PCA KEYS XX PRN (00:05)
[2023-09-19] MEDS: NS 1,000 ML IV SCH ×3 (01:26→09:41)
[2023-09-19] MEDS: PEN G POT 3,000,000 UNIT/50 ML 3,000,000 UNIT in IV 1 EA IV SCH ×2 (03:02→06:49)
[2023-09-19] MEDS: ePHEDrine SULFATE 25 MG/5 ML(5MG/ML) SYRINGE IVP PRN ×2 (05:06→08:17)
[2023-09-19] MEDS ORDERED: D5W/0.9% SODIUM CHLORIDE 1,000 ML IV SCH (08:50)
[2023-09-19] MEDS: FLUoxetine 20MG CAP PO SCH (09:00)
[2023-09-19] MEDS: PRENATAL VITAMINS CHEWABLE TABLET PO SCH (09:00)
[2023-09-19] MEDS ORDERED: DOCUSATE SODIUM 100MG CAPSULE PO PRN (10:55)
[2023-09-19] MEDS ORDERED: IBUPROFEN 600MG TAB PO PRN (10:55)
[2023-09-19] MEDS ORDERED: RHOGAM 300MCG (1500IU) INJ IM SCH (10:55)
[2023-09-19] MEDS ORDERED: LR 1,000 ML IV SCH (10:55)
[2023-09-19] MEDS ORDERED: ACETAMINOPHEN 500 MG TAB PO PRN (10:55)
[2023-09-19] MEDS ORDERED: OXYTOCIN DRIP 30 UNITS in IV 1 EA IV SCH ×4 (10:55)
[2023-09-19] MEDS ORDERED: METHYLERGONOVINE MALEATE 0.2 MG TAB PO PRN (10:55)
[2023-09-19] MEDS ORDERED: MOM 30ML SUSPENSION UDC PO PRN (10:55)
[2023-09-19] MEDS ORDERED: ACETAMINOPHEN TAB 650MG DOSE (2X325MG) PO PRN (10:55)
[2023-09-19] MEDS ORDERED: DIBUCAINE 1% OINTMENT 30GM TOP PRN (10:55)
[2023-09-19] MEDS: IBUPROFEN 800 MG TAB PO PRN (22:02)
[2023-09-20 08:00] VITALS: BP 110/78; O2SAT 99
[2023-09-20] MEDS: IBUPROFEN 800 MG TAB PO PRN (08:13)
[2023-09-20] MEDS: PRENATAL VITAMINS CHEWABLE TABLET PO SCH (08:13)
[2023-09-20] MEDS: FLUoxetine 20MG CAP PO SCH (08:14)
[2023-09-20] MEDS ORDERED: IBUP-1022 PO (09:15)
[2023-09-20] MEDS ORDERED: COLA100C5 PO (09:15)
[2023-09-20] MEDS ORDERED: ACET1TAB55 PO (09:15)
[2023-09-21] MEDS ORDERED: MEASLES,MUMPS,RUBELLA VACCINE INJ (MMR-II) SC.IMMUN ONE (09:00)
== END 2023-09-20 16:20 | disposition home or self-care (01) | DRG 807 ==
LOC: M LDO 08:53 → M LDI 09:45 → M OBS 09-19 13:30
PROVIDERS: ADMIT Obstetrics & Gynecology; ATTEND Obstetrics & Gynecology
PROC: 10E0XZZ Delivery of Products of Conception, External Approach (ICD-10-PCS; principal; 2023-09-19)
DX: O41.03X0 Oligohydramnios, third trimester, not applicable or unspecified (principal); Z37.0 Single live birth; Z3A.37 37 weeks gestation of pregnancy; O99.824 Streptococcus B carrier state complicating childbirth; O24.414 Gestational diabetes mellitus in pregnancy, insulin controlled; O26.00 Excessive weight gain in pregnancy, unspecified trimester; Z79.4 Long term (current) use of insulin; Z79.899 Other long term (current) drug therapy; O43.199 Other malformation of placenta, unspecified trimester; O36.0990 Maternal care for other rhesus isoimmunization, unspecified trimester, not applicable or unspecified

== ENCOUNTER → 2025-01-01 | Outpatient (CLI) | payer OTHER ==
[~2025-01-01] MED LIST changes: +ACET1TAB55 PO; +COLA100C5 PO; +FLUO-365 PO; -FLUO20CA22 PO; +HUMU1INJ2 SC; +IBUP-1022 PO; +NAPR-1405 PO; -NAPR500T6 PO
== END ==
LOC: M WHC 07:38
PROVIDERS: ATTEND Nurse Practitioner Family
DX: N63.20 Unspecified lump in the left breast, unspecified quadrant (principal); R92.323 Mammographic fibroglandular density, bilateral breasts; Z80.3 Family history of malignant neoplasm of breast
CPT/HCPCS: 77066; G0279